=== PATIENT | female | born 1950 | race Caucasian/White ===

== ENCOUNTER → 2018-02-12 10:25 | Outpatient (CLI) | payer MEDICARE, OTHER, SELFPAY ==
--- NOTE | 2018-02-12 10:29 | BI_ITS ---
MAMMOGRAPHY - BILATERAL SCREENING REASON FOR EXAM: Female, 67 years old. Routine annual screening examination. PERTINENT HISTORY: Aunt with breast cancer. TECHNIQUE: Digital bilateral breast tami (3D mammographic acquisition) in the CC and MLO projections. 2-D mediolateral oblique (MLO) and craniocaudad (CC) views of both breasts were obtained. CAD: Full Field Digital Mammography with Computer Added Detection was performed. COMPARISON: Comparison is made with prior study dated February 06, 2017 and December 21, 2015. FINDINGS: Breast Composition: There are scattered areas of fibroglandular density. There are no dominant masses or suspicious calcifications. Stable bilateral secretory calcifications. No other significant abnormalities are identified. There has been no significant change since the prior study. BI/SCREENING MAMM (CAD), BILAT IMPRESSION: Stable bilateral screening mammogram. Yearly follow-up mammogram recommended. (A) ASSESSMENT CATEGORY: BIRADS Category 2: Benign. A letter regarding these results will be sent to the patient by the facility within 30 days. Approximately 10% of breast cancers are not detected by mammography. A normal mammogram should not delay biopsy of a clinically suspicious abnormality. [id number] Electronically Signed: Ranjeet Funes MD at 13:58 EDT Tel [phone], Service support ,
== END ==
PROVIDERS: PCP Internal Medicine; Visit Provider Internal Medicine
DX: Z12.31 Encounter for screening mammogram for malignant neoplasm of breast (principal); Z80.3 Family history of malignant neoplasm of breast
CPT/HCPCS: 77063; 77067

== ENCOUNTER → 2019-02-05 11:30 | Outpatient (CLI) | payer MEDICARE, OTHER, SELFPAY ==
[2019-02-05 15:15] LABS: Absolute Lymphocyte Count 1.81 X10^3/ul (0.83-4.51); Absolute Neutrophil Count 5.2 X10^3/uL (2.0-7.7); Basophil# 0.06 X10^3/uL; Basophil% 0.8 % (0-1); Eosinophil# 0.16 X10^3/uL; Eosinophils% 2.1 % (0-5); Hematocrit 37.5 % (37-47); Hemoglobin 12.2 g/dl (12.0-15.0); Lymphocyte # 1.81 X10^3/ul (4.0); Lymphocyte % 23.2 % (19-41); Mean Corp Hgb Conc 32.5 g/gl (32-36); Mean Corpuscular Hgb 29.3 pg (27.0-32.0); Mean Corpuscular Volume 90.1 fL (81-99); Mean Platelet Vol. 10.1 fl (6.2-12.0); Monocyte% 7.7 % (0-10); Neutrophil # 5.17 X10^3/uL (2.7-7.7); Neutrophil % 66.2 % (47-70); Platelet Count 221 K/mm3 (150-450); RBC Distribution Width CV 13.7 % (11.6-14.6); RBC Distribution Width SD 45.3 fl (35.1-43.9); Red Blood Count 4.16 M/mm3 (4.2-5.4); White Blood Count 7.8 K/mm3 (4.4-11.0)
[2019-02-05 15:16] LABS: POSITIVE COUNT NO; POSITIVE DIFFERENTIAL NO; POSITIVE MORPHOLOGY NO
[2019-02-05 15:44] LABS: AST(SGOT) 25 U/L (15-37); Alanine Aminotransfer ALT/SGPT 43 U/L (13-56); Albumin, Serum 3.8 g/dL (3.2-5.0); Alkaline Phosphatase 66 U/L (45-117); Anion Gap 7 (5-15); BUN 14 mg/dL (7-18); BUN/Creat Ratio 24.6 RATIO (10-20); Calcium,Total 8.9 mg/dL (8.5-10.1); Chloride 104 mmol/L (98-107); Creatinine, Serum 0.57 mg/dL (0.55-1.02); EST Glomerular Filtration Rate 112 mL/min (>60); Est Glom Filt Rate - Afr Amer 136 mL/min (>60); Free T3 2.6 pg/mL (2.18-3.98); Globulin 3.8 g/dL (2.2-4.2); Glucose 85 mg/dL (74-106); Potassium 3.8 mmol/L (3.5-5.1); Protein, Total 7.6 g/dL (6.4-8.2); Sodium Level 140 mmol/L (136-145); T4 Free Direct 1.44 ng/dL (0.76-1.46); Thyroid Stim Hormone (TSH) 1.16 uIU/mL (0.358-3.74)
== END ==
PROVIDERS: Family Provider Family Medicine; PCP Family Medicine; Visit Provider Family Medicine
DX: E03.9 Hypothyroidism, unspecified (principal); R06.02 Shortness of breath; I10 Essential (primary) hypertension
CPT/HCPCS: 36415; 80053; 84439; 84443; 84481; 85025

== ENCOUNTER 2019-02-09 00:18 | Observation (INO) | payer MEDICARE, OTHER, SELFPAY ==
[2019-02-09] VITALS (11 sets, daily range): BP systolic 136–183; BP diastolic 64–93; PULSE 62–83; RESP 13–24; TEMP 36.3–37.1; O2SAT 97–100; BMI 25.3; BMI 24.5
--- NOTE | 2019-02-09 00:21 | ED.RN ---
CALLED FOR EKG WITH A COMPLAINT OF CHEST PAIN, PULLED OLD EKGS FOR
--- NOTE | 2019-02-09 00:30 | RAD_ITS ---
STUDY: X-RAY CHEST REASON FOR EXAM: Female, 68 years old. Chest pain. TECHNIQUE: Single AP portable view of the chest. COMPARISON: None. FINDINGS: The lungs are clear and expanded. There is no demonstrated pleural abnormality. Normal size heart. Normal mediastinum and betty. Normal visualized pulmonary arteries. Normal visualized aortic arch and descending thoracic aorta. There is a dextroscoliosis of the thoracic spine. There is degenerative osteoarthritis of the bilateral shoulders. There is no demonstrated abnormality of the visualized soft tissue structures of the upper abdomen. RAD/Chest 1 View (Portable) IMPRESSION: Degenerative changes, as described above. No demonstrated acute cardiopulmonary process. Electronically Signed: Terry Mosley, at 0:49 EDT Tel , Service support ,
--- NOTE | 2019-02-09 00:30 | EKG12_ITS ---
Test Reason : CP Blood Pressure : / mmHG Vent. Rate : 074 BPM Atrial Rate : 074 BPM P-R Int : 200 ms QRS Dur : 086 ms QT Int : 402 ms P-R-T Axes : 061 -03 095 degrees QTc Int : 446 ms Normal sinus rhythm Possible Anterior infarct , age undetermined Abnormal ECG Confirmed by PAULA ESTRELLA, DRISS ([id number]), newspaper managing editor DANIA AZAR ([id number]) on 02/12/2019 1:19:35 PM Referred By: LISSA Confirmed By:DRISS MITCHELL MD
[2019-02-09] MEDS: Aspirin 81 MG TAB.CHEW 324 MG PO (00:33)
[2019-02-09 00:36] LABS: Absolute Lymphocyte Count 2.36 X10^3/ul (0.83-4.51); Absolute Neutrophil Count 4.2 X10^3/uL (2.0-7.7); Basophil# 0.08 X10^3/uL; Eosinophil# 0.36 X10^3/uL; Eosinophils% 4.6 % (0-5); Hematocrit 37.7 % (37-47); Hemoglobin 12.6 g/dl (12.0-15.0); Lymphocyte # 2.36 X10^3/ul (4.0); Mean Corp Hgb Conc 33.4 g/gl (32-36); Mean Corpuscular Hgb 29.6 pg (27.0-32.0); Mean Corpuscular Volume 88.7 fL (81-99); Mean Platelet Vol. 9.7 fl (6.2-12.0); Monocyte# 0.89 X10^3/uL; Monocyte% 11.3 % (0-10); Neutrophil # 4.17 X10^3/uL (2.7-7.7); Platelet Count 206 K/mm3 (150-450); RBC Distribution Width CV 13.2 % (11.6-14.6); RBC Distribution Width SD 42.5 fl (35.1-43.9); Red Blood Count 4.25 M/mm3 (4.2-5.4); White Blood Count 7.9 K/mm3 (4.4-11.0)
--- NOTE | 2019-02-09 00:36 | ED.DCSUM_ITS ---
- ER Visit Summary Date of Service: 02/09/19 Chief Complaint: Left arm pain, chest pain History of Present Illness: The patient is a 68 F presenting with left arm pain. She states her arm has been aching throughout the day. She does not recall any injury. It is not worsened with different movements or positions. She states she has been having intermittent chest pressure over the past week. This is associated with shortness of breath and lightheadedness. She was seen by her primary care physician on Monday and scheduled for an outpatient stress test. She denies diaphoresis or nausea. She has a history of hypertension and hypothyroidism. Denies PE/DVT risk factors. She is not a smoker. Physical Examination: Vitals are stable. Patient is afebrile. Alert no acute distress. HEENT exam is unremarkable. Neck is supple. Lungs are clear and equal bilaterally. Heart is regular rate and rhythm. Abdomen is soft nontender nondistended. Extremities are unremarkable. Skin is warm and dry. No focal neurologic deficit. Remainder of exam is unremarkable. Emergency Department Course and Treatment: Patient was given aspirin on arrival. EKG is sinus rate of 74, unchanged from previous. Chest x-ray shows no acute process. CBC, chemistries unremarkable other than potassium 3.2. Troponin is negative. On reevaluation, her pain has improved. Discussed with the hospitalist for observation. Disposition: Observation Impression: Chest pain, left arm pain This note was generated with [employer] dictation software. It may contain incorrect words, spelling, and punctuation that were not noted in review of the chart prior to signing ED Disposition - Plan for ED Patient: Referrals: Niki Nieto MD [Primary Care Provider] -
[2019-02-09 00:39] LABS: POSITIVE COUNT NO; POSITIVE DIFFERENTIAL NO; POSITIVE MORPHOLOGY NO
[2019-02-09 00:50] LABS: Anion Gap 2 (5-15); BUN 11 mg/dL (7-18); BUN/Creat Ratio 18.7 RATIO (10-20); Calcium,Total 8.9 mg/dL (8.5-10.1); Chloride 108 mmol/L (98-107); Creatinine, Serum 0.59 mg/dL (0.55-1.02); EST Glomerular Filtration Rate 108 mL/min (>60); Est Glom Filt Rate - Afr Amer 131 mL/min (>60); Estimated Creatinine Clearance 41.99 ml/min; Glucose 88 mg/dL (74-106); Potassium 3.2 mmol/L (3.5-5.1); Sodium Level 140 mmol/L (136-145)
--- NOTE | 2019-02-09 01:54 | HP.PCM_ITS ---
Problem List (1) Osteoporosis Status: Chronic (2) Hypothyroidism Status: Chronic (3) Hypertension Status: Chronic (4) Chronic back pain Status: Chronic (5) Left arm pain Status: Acute (6) Upper respiratory infection Status: Inactive (7) Anemia Status: Inactive History of Present Illness Date of Admission: 02/09/19 Chief Complaint: left arm pain The patient is a 68 year old F with a significant history of hypertension; osteoporosis; chronic back pain; and hypothyroidism who presented with left arm pain and tingling of the same extremity for 1 day. Also in the past 2 weeks patient has had episodic substernal excruciating chest pain that typically comes on in the afternoon and fades away in the evening. For this reason she saw her PCP who prescribed outpatient stress test which is yet to be done. The last time she had a chest pain was a day before the presentation. Patient describes chest pain as heaviness. It is associated with shortness of breath making it difficult for her to talk. She thinks that her chest pain is aggravated with talking and improved by not talking. She reported that because her chest pain she felt lightheaded and was about to pass out. She denies any nausea or vomiting. However she reports the feeling of warmness with chest pain. At emergency part the patient was noted to have low potassium. Patient was given potassium chloride 20mEq as well as aspirin. Reportedly patient had a treadmill stress test a year ago. Past Medical History Past Medical History (Chronic Problems): Chronic Problems (Last Reviewed 02/09/19 @ 02:47 by Malachi Ta MD) Chest pain (Chronic) Osteoporosis (Chronic) Hypothyroidism (Chronic) Hypertension (Chronic) Chronic back pain (Chronic) Medical History: Medical History (Last Reviewed 02/09/19 @ 02:54 by Malachi Ta MD) Chest pain (Chronic) R07.9 Osteoporosis (Chronic) M81.0 Hypothyroidism (Chronic) E03.9 Hypertension (Chronic) I10 Chronic back pain (Chronic) M54.9, G89.29 Anemia (Acute) D64.9 Allergies amoxicillin Allergy (Verified 02/09/19 00:19) Itching Home Medications: Ambulatory Orders Medication Instructions Recorded atenolol 25 mg tablet 12.5 mg PO QDAY tab 02/02/18 levothyroxine 50 mcg capsule 50 mcg PO QDAY 02/02/18 Surgical History: Surgical History (Last Reviewed 02/09/19 @ 02:54 by Malachi Ta MD) History of appendectomy Z90.49 Surgical History: - - Tubal ligation, bladder tuck. Lives: With Family Smoking Status: Never smoker - *Family History Maternal Family History: Family History (Last Reviewed 02/09/19 @ 02:54 by Malachi Ta MD) Father Heart disease Myocardial infarction Mother Dementia History Items: Hypertension - Paternal side, - - She reports that a paternal grandfather had a heart attack when he was a 62 for for which reason he in his sleep. Review of Systems Constitutional: Denies: Chills, Fever, Weight Change HEENT: Denies: Head Aches, Sinus Congestion, Sinus Drainage Cardiovascular: Reports: Chest Pain, Light Headedness. Denies: Palpitations Respiratory: Reports: Shortness of Breath. Denies: Cough, Shortness of breath at rest, Sputum production Gastrointestinal: Denies: Abdominal Pain, Nausea, Vomiting Genitourinary: Denies: Dysuria Musculoskeletal: Denies: Joint Pain, Joint Tenderness Skin: Denies: Rash, Wounds Neurological: Denies: Numbness, Tingling, Focal weakness Psychiatric: Denies: Anxiety, Depression, Homicidal Ideations, Suicidal Ideations Hematologic/ Lymphatic: Denies: Easy Bruising, Easy Bleeding VTE Information - Inpt Only VTE Present on Admission: No VTE Mechan Device Prophylaxis: None VTE Pharm Prophylaxis ordered?: Yes Patient Problems: Active and Suspected Problems (Last Reviewed 02/09/19 @ 02:47 by Malachi Ta MD) Left arm pain (Acute) - Physical Exam General: Alert, Oriented x3, Cooperative HEENT: Atraumatic, PERRLA, EOMI, Normocephalic Neck: Supple, No JVD, Negative Carotid Bruits Lungs: Clear to auscultation, Normal air movement Cardiovascular: Regular rate, No murmurs Abdomen: Bowel Sounds Present, Soft, Non Tender Extremities: No edema, Capillary Refill Less than 3 Seconds Skin: No rashes, No breakdown Musculoskeletal: No Tenderness to Palpation of Joints or Extremities Neurological: Cranial nerves II-XII grossly intact, Motor Exam 5/5 strength throughout, - - Deep tendon reflexes are not hyperactive. No dysmetria. Psych/Mental Status: Normal Affect, Appropriate Vital Signs Temp Pulse Resp BP Pulse Ox 98.8 F 78 24 H 183/83 H 99 02/09/19 00:20 02/09/19 00:20 02/09/19 00:20 02/09/19 00:20 02/09/19 00:20 Oxygen Flow Rate (L/min) 2 Oxygen Delivery Method Nasal Cannula Weight: 62.8 kg Body Mass Index (BMI) 25.3 Laboratory Tests Past 24 Hrs 02/09/19 02/09/19 00:25 00:25 WBC 7.9 RBC 4.25 Hgb 12.6 Hct 37.7 MCV 88.7 MCH 29.6 MCHC 33.4 RDW 13.2 RDW Differential 42.5 Plt Count 206 MPV 9.7 Immature Gran % (Auto) 0.100 Neut % (Auto) 53.0 Lymph % (Auto) 30.0 [place] % (Auto) 11.3 H Eos % (Auto) 4.6 Baso % (Auto) 1.0 Absolute Neuts (auto) 4.2 Absolute Lymphs (auto) 2.36 Total Counted Not Reportable Sodium 140 Potassium 3.2 L Chloride 108 H Carbon Dioxide 30.0 Anion Gap 2 L BUN 11 Creatinine 0.59 Estim Creat Clear Calc 41.99 Est GFR (MDRD) Af Amer 131 Est GFR (MDRD) Non-Af 108 BUN/Creatinine Ratio 18.7 Glucose 88 Calcium 8.9 Troponin I < 0.015 Assessment/Plan All Active Problems (Last Reviewed 02/09/19 @ 02:47 by Malachi Ta MD) Left arm pain (Acute) The patient is a 68 year old F with a significant history of hypertension; osteoporosis; chronic back pain; and hypothyroidism who presented with left arm pain and tingling of the same extremity; and also with chest pain concerning for cardiac source of chest pain. Chest pain Her left-sided arm pain and tingling could be chest pain equivalent. Further she reports episodic chest pain for last 2 weeks. Admit to a monitored bed on PCU CXR independently reviewed confirms no acute cardiopulmonary process. EKG independently reviewed confirms T wave inversion only in lead aVL Old records reviewed showed normal Sinus jasmin with first degree AV block. Received aspirin 325 mg at emergency departments. SL NTG 0.4 mg prn as needed for chest pain Morphine as needed for pain We will check lipid panel. High intensity statin x1 dose ordered. Serial cardiac enzymes Stat EKG as needed for chest pain Treadmill Stress test in the AM if the cardiac enzymes are negative Hypertension On presentation her blood pressure was not within goal. Because patient has a scheduled treadmill test we will hold home beta-fredy PRN hydralazine ordered. Trend blood pressures. Hypokalemia On presentation his potassium was 3.2. Patient received K-Dur 20 mEq in the emergency department. Additional 40 mEq of K-Dur has been ordered. Trend BMP Check magnesium level. Hypothyroidism Synthroid continued. DVT prophylaxis Subcutaneous Lovenox ordered Code Visit OBSV E&M: 11767 Initial observation care L3
--- NOTE | 2019-02-09 02:49 | ED.RN ---
PT CALLED DOWN FOR ME TO GIVE 40MEQ K-DUR. VERIFIED TO GIVE THIS ON TOP OF THE 20 SHE JUST RECENTLY GOT, DR. MEDRANO STATED YES, HE WANTS A TOTAL OF 60 MEQ GIVEN IN ED.
--- NOTE | 2019-02-09 03:00 | EKG12_ITS ---
Test Reason : ADMIT EKG Blood Pressure : / mmHG Vent. Rate : 058 BPM Atrial Rate : 058 BPM P-R Int : 224 ms QRS Dur : 092 ms QT Int : 422 ms P-R-T Axes : 046 -04 060 degrees QTc Int : 414 ms Sinus bradycardia with 1st degree A-V block Otherwise normal ECG When compared with ECG of 09-FEB-2019 00:24, MANUAL COMPARISON REQUIRED, DATA IS UNCONFIRMED Confirmed by PAULA ESTRELLA, DRISS ([id number]), editor book DANIA AZAR ([id number]) on 02/12/2019 2:03:06 PM Referred By: DR BRENNER Confirmed By:DRISS MITCHELL MD
--- NOTE | 2019-02-09 05:55 | NM_ITS ---
CLINICAL: 68-year-old hypertensive female with reported history of chest discomfort. REST-MAXIMAL STRESS 99mTc SESTAMIBI MYOCARDIAL PERFUSION SPECT COMPARISON: Previous stress cardiac perfusion SPECT study raw data dated 07/31/2015 FINDINGS: Following the intravenous administration of 12.0 mCi of 99m Tc sestamibi, the resting myocardial perfusion acquisitions demonstrate uniform radiopharmaceutical concentration throughout all left ventricular segments. After exercising on the treadmill for 6 minutes and 33 seconds, to a maximum heart rate of 150 beats per minute and following the intravenous administration of 35.8 mCi of 99m Tc sestamibi, the post stress myocardial perfusion images reveal likewise normal perfusion throughout all left ventricular myocardial segments. The post stress resting left ventricular ejection fraction is calculated to be > 70 % by gated SPECT technique. Wall motion and end systolic thickening are considered normal. NM/Nuclear Stress Test - Treadmil IMPRESSION: 1. NORMAL REST-MAXIMAL STRESS 99m Tc SESTAMIBI MYOCARDIAL PERFUSION SPECT. A. No evidence of maximal exercise induced left ventricular ischemia. B. Preservation of resting left ventricular systolic function. (Alyssa et al, J Nucl Med 37: 105P, 1995). Electronically Signed: Dave Ely DO at 13:08 EDT Tel , Service support ,
[2019-02-09] MEDS: Levothyroxine 50 MCG Tablet PO (06:05)
[2019-02-09 07:13] LABS: Partial Thromboplast Time 29.7 Seconds (24.1-36.2); Prothrombin Time (Protime)PT. 13.3 SECONDS (11.7-14.9)
[2019-02-09 07:39] LABS: Anion Gap 4 (5-15); BUN 8 mg/dL (7-18); BUN/Creat Ratio 15.5 RATIO (10-20); Calcium,Total 8.9 mg/dL (8.5-10.1); Chloride 111 mmol/L (98-107); Cholesterol 185 mg/dL (200); Creatinine, Serum 0.52 mg/dL (0.55-1.02); EST Glomerular Filtration Rate 125 mL/min (>60); Est Glom Filt Rate - Afr Amer 152 mL/min (>60); Estimated Creatinine Clearance 41.99 ml/min; Glucose 86 mg/dL (74-106); High Density Lipoprotein 64 mg/dL; Potassium 4.2 mmol/L (3.5-5.1); Sodium Level 144 mmol/L (136-145); Triglycerides 52 mg/dL; Very Low Density Lipoprotein 10 mg/dL (5-40)
--- NOTE | 2019-02-09 11:08 | STRESSREP ---
Stress Test Report Resting EKG showed normal sinus rhythm. Nonspecific T wave changes. Patient exercised on the treadmill according to the [employer] protocol for a total of 6 minutes and 33 seconds. Test was stopped as maximal heart rate was achieved. Resting heart rate was 68 bpm. Target heart rate was 129 bpm which was 85% of the predicted maximal heart rate. Maximal heart rate achieved was 150 bpm. Patient complained of 5 out of 10 chest pain during the second stage with at a heart rate of 133 bpm. EKG changes suggestive of ischemia noted in leads I and aVL starting during the second stage of exercise and resolving into recovery. Interpretation: 1. Positive EKG changes suggestive of ischemia. Specificity may be decreased because of resting EKG changes. 2. Chest pain reported during the second stage of exercise. 3. Nuclear report pending.
--- NOTE | 2019-02-09 14:07 | DCINST_ITS ---
- Discharge Diagnoses Current Active Problems: Current Active and Chronic Problems (Last Reviewed 02/09/19 @ 02:54 by Malachi Ta MD) Left arm pain (Acute) You will use the following diet at home:: Cardiac Your food should be the consistency of: Regular Your liquids should be the consistency of: Regular/Thin Discharge Activity: Return to Normal Activity Allergies/Adverse Reactions: Allergies amoxicillin Allergy (Verified 02/09/19 00:19) Itching Medications to take at Discharge atenolol 25 mg tablet 25 mg PO QDAY tab 02/02/18 levothyroxine 50 mcg capsule 50 mcg PO QDAY 02/02/18 Acetaminophen [Tylenol Tablet] 650 mg PO Q6H PRN PRN tablet 02/09/19 Isosorbide Mononitrate [Imdur] 30 mg PO DAILY #30 tab 02/09/19 The following prescriptions were given: Isosorbide Mononitrate [Imdur] 30 mg PO DAILY #30 tab Primary Care Physician: Niki Nieto MD [Primary Care Provider] - Please follow up with your Primary Care Physician in: 1-2 weeks Test Results: Test results from this visit will be discussed in further detail at your follow- up appointment, if applicable. Please Follow Up With: Gee Mancera MD When: Monday Proposed Discharge Date: 02/09/19
--- NOTE | 2019-02-09 14:56 | DS.PCM_ITS ---
<Chris Mccallum - Last Filed: 02/09/19 14:43> Discharge Date and Diagnosis Date of Admission: 02/09/19 Date of Discharge: 02/09/19 - Primary Discharge Diagnosis Chest pain Abnormal stress test Hypokalemia - resolved HTN Hypothyroidism Chronic back pain - Secondary Discharge Diagnosis Chronic Problems (Last Reviewed 02/09/19 @ 02:54 by Malachi Ta MD) Chest pain (Chronic) Osteoporosis (Chronic) Hypothyroidism (Chronic) Hypertension (Chronic) Chronic back pain (Chronic) Hospital Course and Treatment Imaging Results: 02/09/19 05:55 Nuclear Stress Test - Treadmil [NM] AM (NON MEDS) EKG:: EKG changes suggestive of ischemia noted in leads I and aVL starting during the second stage of exercise and resolving into recovery. Interpretation: 1. Positive EKG changes suggestive of ischemia. Specificity may be decreased because of resting EKG changes. 2. Chest pain reported during the second stage of exercise. 3. Nuclear report pending. Nuclear:: NM/Nuclear Stress Test - Treadmil IMPRESSION: 1. NORMAL REST-MAXIMAL STRESS 99m Tc SESTAMIBI MYOCARDIAL PERFUSION SPECT. A. No evidence of maximal exercise induced left ventricular ischemia. B. Preservation of resting left ventricular systolic function. (Alyssa et al, J Nucl Med 37: 105P, 1995). RAD/Chest 1 View (Portable) IMPRESSION: Degenerative changes, as described above. No demonstrated acute cardiopulmonary process. Operations: None Procedures: Stress test Summary of Care Provided: Hospital Course: The patient is a 68 year old F with pmhx htn, chronic back pain, hypothyroidism, osteoporosis, anemia, who presented to the ER with c/o chest pain and heaviness, substernal, excruciating, not present in the AM, worse in the afternoon at rest and with exertion, possibly worse when talking. She had associated lightheadedness and a feeling that she may pass out. She came to the ER and had a negative troponin, negative CXR, negative troponin. Labs were positive for low K. She was admitted to the PCU for chest pain workup on tele. No events on tele. Potassium was replaced. Troponin cycled - negative x 3. She underwent a stress test the following day. The EKG portion of this test demonstrated ischemic changes, the nuclear portion was normal. The patient had no further chest pain at all after admission. I discussed this with Dr. Carr. He advised me that with the nuclear portion being negative, and that she no longer has any symptoms, she could be follow up with as an outpatient. I discussed this with the patient. She felt comfortable going home, and with following up with Dr. Mancera on Monday (she states she saw him about 5 years prior and had a negative workup) or another senior database administrator if he is not available, and is amenable to further testing including a heart catheterization as an outpatient if indicated. She was started on imdur, and will continue atenolol. Blood pressure has been trending high. She will start daily baby aspirin. She was advised to avoid physical exertion, alcohol, coffee, and stress. She was discharged home in stable condition. She will follow up Monday with cardiology, and with the PCP in 1-2 weeks. This patient was seen by Chris Mccallum PA-C under the supervision of Dr. Power. [] - Physical Exam General: Alert, Oriented x3, Cooperative HEENT: Atraumatic, PERRLA, EOMI, Normocephalic Neck: Supple, No JVD, Negative Carotid Bruits Lungs: Clear to auscultation, Normal air movement Cardiovascular: Regular rate, No murmurs Abdomen: Bowel Sounds Present, Soft, Non Tender Extremities: No edema, Capillary Refill Less than 3 Seconds Skin: No rashes, No breakdown Musculoskeletal: No Tenderness to Palpation of Joints or Extremities Neurological: Cranial nerves II-XII grossly intact Psych/Mental Status: Normal Affect, Appropriate, Alert and oriented to time, place, person, mood and affect Vital Signs Temp Pulse Resp BP Pulse Ox 98.1 F 83 14 146/91 H 98 02/09/19 14:20 02/09/19 14:20 02/09/19 14:20 02/09/19 14:20 02/09/19 14:20 Oxygen Flow Rate (L/min) 2 Oxygen Delivery Method Room Air Weight: 133 lb 13.129 oz Body Mass Index (BMI) 24.5 Intake and Output for Last 24 Hours 02/07/19 02/08/19 02/09/19 23:59 23:59 23:59 Intake Total 270 / 270 Balance 270 / 270 Laboratory Tests Past 24 Hrs 02/09/19 02/09/19 02/09/19 00:25 00:25 03:29 WBC 7.9 RBC 4.25 Hgb 12.6 Hct 37.7 MCV 88.7 MCH 29.6 MCHC 33.4 RDW 13.2 RDW Differential 42.5 Plt Count 206 MPV 9.7 Immature Gran % (Auto) 0.100 Neut % (Auto) 53.0 Lymph % (Auto) 30.0 Stark % (Auto) 11.3 H Eos % (Auto) 4.6 Baso % (Auto) 1.0 Absolute Neuts (auto) 4.2 Absolute Lymphs (auto) 2.36 Total Counted Not Reportable PT INR APTT Sodium 140 Potassium 3.2 L Chloride 108 H Carbon Dioxide 30.0 Anion Gap 2 L BUN 11 Creatinine 0.59 Estim Creat Clear Calc 41.99 Est GFR (MDRD) Af Amer 131 Est GFR (MDRD) Non-Af 108 BUN/Creatinine Ratio 18.7 Glucose 88 Calcium 8.9 Magnesium 2.0 Troponin I < 0.015 < 0.015 Triglycerides Cholesterol LDL Cholesterol VLDL Cholesterol HDL Cholesterol 02/09/19 02/09/19 02/09/19 06:35 06:35 06:35 WBC RBC Hgb Hct MCV MCH MCHC RDW RDW Differential Plt Count MPV Immature Gran % (Auto) Neut % (Auto) Lymph % (Auto) Stark % (Auto) Eos % (Auto) Baso % (Auto) Absolute Neuts (auto) Absolute Lymphs (auto) Total Counted PT 13.3 INR 1.0 APTT 29.7 Sodium 144 Potassium 4.2 Chloride 111 H Carbon Dioxide 29.0 Anion Gap 4 L BUN 8 Creatinine 0.52 L Estim Creat Clear Calc 41.99 Est GFR (MDRD) Af Amer 152 Est GFR (MDRD) Non-Af 125 BUN/Creatinine Ratio 15.5 Glucose 86 Calcium 8.9 Magnesium Troponin I < 0.015 Triglycerides 52 Cholesterol 185 LDL Cholesterol 111 VLDL Cholesterol 10 HDL Cholesterol 64 Discharge Diet: Low fat/ Low Cholesterol, - - 2500 mg sodium daily Discharge Activity: Return to Normal Activity Home Medications: Medications to take at Discharge atenolol 25 mg tablet 25 mg PO QDAY tab 02/02/18 levothyroxine 50 mcg capsule 50 mcg PO QDAY 02/02/18 Acetaminophen [Tylenol Tablet] 650 mg PO Q6H PRN PRN tablet 02/09/19 Aspirin [Aspirin, Baby] 81 mg PO DAILY@0800 #30 tab.chew 02/09/19 Isosorbide Mononitrate [Imdur] 30 mg PO DAILY #30 tab 02/09/19 Following Prescrptions Were Given to Patient: Aspirin [Aspirin, Baby] 81 mg PO DAILY@0800 #30 tab.chew Isosorbide Mononitrate [Imdur] 30 mg PO DAILY #30 tab Primary Care Physician: Niki Nieto MD [Primary Care Provider] - Please follow up with your Primary Care Physician in: 1-2 weeks Please Follow Up With: Gee Mancera MD When: Monday Please Follow Up With: sara teague Disposition: Home Minutes spent on discharge:: 35 Patient Condition:: Stable Medical Necessity - Tobacco Use Smoking Status: Never smoker Meaningful Use Info Meaningful Use Diagnoses (Choose all that apply): None applicable <Goodtspartha,[place] - Last Filed: 02/10/19 07:46> Discharge Date and Diagnosis - Secondary Discharge Diagnosis Chronic Problems (Last Reviewed 02/09/19 @ 02:54 by Malachi Ta MD) Chest pain (Chronic) Osteoporosis (Chronic) Hypothyroidism (Chronic) Hypertension (Chronic) Chronic back pain (Chronic) Hospital Course and Treatment Procedures: None Summary of Care Provided: This patient was seen in conjunction with SARAH Fermin. I have independently interviewed and examined the patient and reviewed pertinent historical, laboratory, and other data. Please refer to SARAH Fermin note for his patient's presentation, findings, and recommendations. I have reviewed and his note and concur with his documentation 68-year-old female with past medical history of hypertension, hypothyroidism who comes in with complaints of chest pain associated lightheadedness. Her admitting EKG was unremarkable. Chest x-ray was negative. Troponins were negative. She had hypokalemia that was replaced. Telemetry was unremarkable. Patient underwent stress test that was negative. Patient was discharged and she will follow-up with senior database administrator in the outpatient. Physical Exam: Gen: Looks in some discomfort, not pale, not jaundiced CVS:HS I +II, regular, no murmurs RESP: Diminished at lung bases GI: BS present and normal, soft, nontender, no palpable organs EXT:No edema ASSESSMENT: 1. Chest pain, atypical, ACS ruled out, stress test negative. 2. Hypertension 3. Hypothyroidism 4. Chronic back pain 5. Osteoporosis - Physical Exam Vital Signs Temp Pulse Resp BP Pulse Ox 98.1 F 83 14 146/91 H 98 02/09/19 14:20 02/09/19 14:20 02/09/19 14:20 02/09/19 14:20 02/09/19 14:20 Oxygen Flow Rate (L/min) 2 Oxygen Delivery Method Room Air Weight: 60.7 kg Body Mass Index (BMI) 24.5 Intake and Output for Last 24 Hours 02/08/19 02/09/19 02/10/19 23:59 23:59 23:59 Intake Total 270 / 270 Balance 270 / 270 Medical Necessity - Tobacco Use Smoking Status: Never smoker Tobacco Use: Non-smoker Code Visit Inpatient E&M: 86189 Disch Hosp
== END 2019-02-09 14:06 | disposition home or self-care (01) ==
LOC: ED 00:51 → PCU 02:33
PROVIDERS: Admitting Provider Hospitalist; Emergency Provider Emergency Medicine; Family Provider Family Medicine; PCP Family Medicine; Visit Provider Internal Medicine
DX: R07.89 Other chest pain (principal); R94.39 Abnormal result of other cardiovascular function study; E03.9 Hypothyroidism, unspecified; I10 Essential (primary) hypertension; E87.6 Hypokalemia; R06.02 Shortness of breath; R42 Dizziness and giddiness; M79.602 Pain in left arm
CPT/HCPCS: 36415; 71045; 78452; 80048; 80061; 83735; 84484; 85025; 85610; 85730; 93005; 93017; 99218; 99285; A9500; A4216; G0378

== ENCOUNTER 2019-02-18 10:29 | Day surgery (SDC) | payer MEDICARE, OTHER, SELFPAY ==
[2019-02-13 13:43] VITALS: BMI 25.0
[2019-02-14 13:02] VITALS: BMI 25.0
--- NOTE | 2019-02-18 12:22 | CL.D_ITS ---
Patient Name: GALILEO REY Study Date: 02/18/2019 Performing: Gee Mancera MD Ht: 61.81 inches 157 cm : 1950 Wt: 136.69 lbs 62 kg Age: 68 Gender: female BSA: 1.62 PROCEDURE(S) PERFORMED CR52-PXL/COR/LV CLINICAL PROFILE AND INDICATIONS Indications: Suspected CAD Heart Failure: None Stress/Imaging Date: 02/09/2019Stress Test with SPECT MPI: Negative CAD Presentations: Symptom unlikely to be ischemic. CONCLUSIONS Non obstructive coronary arteries Normal LV size, wall motion,and systolic function RECOMMENDATIONS Medical therapy DESCRIPTION OF PROCEDURE The patient arrived to the procedure lab. The risks and benefits of the procedure as well as a full d escription of our services here and current unavailability of surgical backup were fully explained to the patient and/or their significant other prior to the catheterization. The Timeout was completed, verifying the correct patient and procedure. The patient's procedural site was prepped and draped in the usual fashion. Local anesthetic was given subcutaneously to right radial region with Lidocaine 2% . Using a modified Seldinger technique, arterial access was obtained via the right radial artery, a 6 Fr sheath was inserted. Left Coronary Artery selective angiography was performed in multiple views u sing a 5 Fr. 4.0 Hemet catheter. Right Coronary Artery selective angiography was then performed in mu ltiple views using a 5 Fr. 4.0 Hemet catheter. Left Ventriculography was performed in GRAY projection using a 5 Fr. Pigtail catheter. LV to AO pullback pressures were then recorded.The arterial sheath was pulled and a TR Band was applied for hemostasis. 12cc of air CORONARY ANGIOGRAPHY DOMINANCE: Right Dominant LEFT HEART ASSESSMENT Left Ventricular Ejection Fraction: by LV Gram 65 % Normal LV wall motion Normal Left Ventricular systolic function LEFT MAIN: Angiographically normal LEFT ANTERIOR DESCENDING ARTERY: Mild luminal irregularities less than 30% CIRCUMFLEX ARTERY: Angiographically normal RIGHT CORONARY ARTERY: Angiographically normal COMPLICATIONS No Complications PROCEDURE MEDICATIONS Fentanyl 50 mcg IV Versed 1 mg IV Oxygen: 2 L/min via nasal cannula Heparin diluted in 23cc Heparinized saline. Patient given 10cc IA of this solution. 02/18/2019 12:06: 23 Verapamil 2.5mg, Ntg 100mcgs, 2000 units of Heparin diluted in 23cc Heparinized saline. Patient give n 10cc IA of this solution. 02/18/2019 12:06:23 SUMMARY OF HEMODYNAMIC DATA Time AIR REST ECG 11:13:42 AO 95/52 (71) SA 12:08:11 LV 114/-1, 6 12:14:34 LV 101/-2, 6 12:14:41 LV 108/0, 8 12:15:56 LVp 107/-2, 7 12:15:59 AOp 111/51 (78) 12:16:04 Signed By Gee Mancera MD On 02/18/2019 12:21:39 PM Gee Mancera MD
== END 2019-02-18 14:41 | disposition home or self-care (01) ==
LOC: CLSP 10:30
PROVIDERS: Family Provider Family Medicine; PCP Family Medicine; Referring Provider Internal Medicine Cardiovascular Disease; Visit Provider Internal Medicine Cardiovascular Disease
DX: R07.9 Chest pain, unspecified (principal); I10 Essential (primary) hypertension; E03.9 Hypothyroidism, unspecified; M54.9 Dorsalgia, unspecified; G89.29 Other chronic pain; M81.0 Age-related osteoporosis without current pathological fracture; Z79.02 Long term (current) use of antithrombotics/antiplatelets; Z79.82 Long term (current) use of aspirin; Z79.899 Other long term (current) drug therapy; Z86.2 Personal history of diseases of the blood and blood-forming organs and certain disorders involving the immune mechanism
CPT/HCPCS: 93458; 99152; 99153; J7040; Q9967; C1769; C1894

== ENCOUNTER → 2019-02-25 07:45 | Outpatient (CLI) | payer MEDICARE, OTHER, SELFPAY ==
[2019-02-14 13:02] VITALS: BMI 25.0
--- NOTE | 2019-02-25 07:50 | BI_ITS ---
MAMMOGRAPHY - BILATERAL SCREENING REASON FOR EXAM: Female, 68 years old. Routine annual screening examination. PERTINENT HISTORY: Aunt with breast cancer. TECHNIQUE: Digital bilateral breast tami (3D mammographic acquisition) in the CC and MLO projections. 2-D mediolateral oblique (MLO) and craniocaudad (CC) views of both breasts were obtained. CAD: Full Field Digital Mammography with Computer Added Detection was performed. COMPARISON: Comparison is made with prior study dated February 12, 2018 and February 06, 2017. FINDINGS: Breast Composition: There are scattered areas of fibroglandular density. There are no dominant masses or suspicious calcifications. Stable appearance of the bilateral secretory calcifications. Stable small bilateral axillary lymph nodes. No other significant abnormalities are identified. There has been no significant change since the prior study. BI/SCREENING MAMM (CAD), BILAT IMPRESSION: Stable bilateral screening mammogram. Yearly follow-up mammogram recommended. (A) ASSESSMENT CATEGORY: BIRADS Category 2: Benign. A letter regarding these results will be sent to the patient by the facility within 30 days. Approximately 10% of breast cancers are not detected by mammography. A normal mammogram should not delay biopsy of a clinically suspicious abnormality. [id number] Electronically Signed: Ranjeet Fnues, at 10:00 EDT , Service support ,
== END ==
PROVIDERS: PCP Internal Medicine; Referring Provider Family Medicine; Visit Provider Family Medicine
DX: Z12.31 Encounter for screening mammogram for malignant neoplasm of breast (principal)
CPT/HCPCS: 77063; 77067

== ENCOUNTER → 2020-02-27 07:05 | Outpatient (CLI) | payer MEDICARE, OTHER, SELFPAY ==
[2019-02-14 13:02] VITALS: BMI 25.0
--- NOTE | 2020-02-27 07:08 | BI_ITS ---
MAMMOGRAPHY - BILATERAL SCREENING REASON FOR EXAM: Female, 69 years old. Routine annual screening examination. PERTINENT HISTORY: Aunt with breast cancer. TECHNIQUE: Digital bilateral breast olesya (3D mammographic acquisition) in the CC and MLO projections. 2-D mediolateral oblique (MLO) and craniocaudad (CC) views of both breasts were obtained. CAD: Full Field Digital Mammography with Computer Added Detection was performed. COMPARISON: Comparison is made with prior study dated February 25, 2019 and February 12, 2018. FINDINGS: Breast Composition: There are scattered areas of fibroglandular density. There are no dominant masses or suspicious calcifications. Stable benign-appearing bilateral axillary lymph nodes. Stable appearance of the bilateral secretory calcifications. No other significant abnormalities are identified. There has been no significant change since the prior study. BI/SCREEN MAMM (CAD) W/OLESYA BILAT IMPRESSION: Stable bilateral screening mammogram. Yearly follow-up mammogram recommended. (A) ASSESSMENT CATEGORY: BIRADS Category 2: Benign. A letter regarding these results will be sent to the patient by the facility within 30 days. Approximately 10% of breast cancers are not detected by mammography. A normal mammogram should not delay biopsy of a clinically suspicious abnormality. [id number] Electronically Signed: Ranjeet Funes, at 10:08 EDT , Service support ,
== END ==
PROVIDERS: PCP Internal Medicine; Referring Provider Family Medicine; Visit Provider Family Medicine
DX: Z12.31 Encounter for screening mammogram for malignant neoplasm of breast (principal)
CPT/HCPCS: 77063; 77067

== ENCOUNTER → 2020-10-05 16:00 | Outpatient (CLI) | payer MEDICARE, OTHER, SELFPAY ==
[2019-02-14 13:02] VITALS: BMI 25.0
[2020-10-05 17:15] LABS: Absolute Lymphocyte Count 1.71 X10^3/uL (0.83-4.51); Absolute Neutrophil Count 4.9 X10^3/uL (2.0-7.7); Basophil# 0.08 X10^3/uL; Eosinophil# 0.25 X10^3/uL; Eosinophils% 3.2 % (0-5); Hematocrit 39.2 % (37-47); Hemoglobin 12.4 g/dL (12.0-15.0); Lymphocyte # 1.71 X10^3/ul (4.0); Lymphocyte % 22.2 % (19-41); Mean Corp Hgb Conc 31.6 g/dL (32-36); Mean Corpuscular Volume 91.8 fL (81-99); Mean Platelet Vol. 10.1 fl (6.2-12.0); Monocyte% 10.4 % (0-10); NRBC Flagged by Analyzer 0 % (0-5); Neutrophil # 4.86 X10^3/uL (2.7-7.7); Neutrophil % 62.9 % (47-70); Platelet Count 227 K/mm3 (150-450); RBC Distribution Width CV 12.8 % (11.6-14.6); RBC Distribution Width SD 43.7 fl (35.1-43.9); Red Blood Count 4.27 M/mm3 (4.2-5.4); White Blood Count 7.7 K/mm3 (4.4-11.0)
[2020-10-05 17:33] LABS: AST(SGOT) 30 U/L (15-37); Alanine Aminotransfer ALT/SGPT 55 U/L (13-56); Albumin, Serum 3.7 g/dL (3.2-5.0); Alkaline Phosphatase 82 U/L (45-117); Anion Gap 6 (5-15); BUN 14 mg/dL (7-18); BUN/Creat Ratio 22.3 RATIO (10-20); Calcium,Total 8.9 mg/dL (8.5-10.1); Chloride 106 mmol/L (98-107); Creatinine, Serum 0.63 mg/dL (0.55-1.02); EST Glomerular Filtration Rate 99 mL/min (>60); Est Glom Filt Rate - Afr Amer 120 mL/min (>60); Free T3 2.4 pg/mL (2.18-3.98); Globulin 3.7 g/dL (2.2-4.2); Glucose 100 mg/dL (74-106); Potassium 3.5 mmol/L (3.5-5.1); Protein, Total 7.4 g/dL (6.4-8.2); Sodium Level 141 mmol/L (136-145); T4 Free Direct 1.34 ng/dL (0.76-1.46); Thyroid Stim Hormone (TSH) 1.46 uIU/mL (0.358-3.74)
== END ==
PROVIDERS: PCP Family Medicine; Visit Provider Family Medicine
DX: I10 Essential (primary) hypertension (principal); E03.9 Hypothyroidism, unspecified; Z51.81 Encounter for therapeutic drug level monitoring
CPT/HCPCS: 36415; 80053; 84439; 84443; 84481; 85025

== ENCOUNTER → 2020-12-16 14:34 | Outpatient (CLI) | payer MEDICARE, OTHER, SELFPAY ==
[2019-02-14 13:02] VITALS: BMI 25.0
[2020-12-16 15:33] LABS: Absolute Lymphocyte Count 1.73 X10^3/uL (0.83-4.51); Absolute Neutrophil Count 4.5 X10^3/uL (2.0-7.7); Basophil# 0.09 X10^3/uL; Basophil% 1.2 % (0-1); Eosinophil# 0.31 X10^3/uL; Eosinophils% 4.2 % (0-5); Hemoglobin 11.8 g/dL (12.0-15.0); Lymphocyte # 1.73 X10^3/ul (4.0); Lymphocyte % 23.6 % (19-41); Mean Corp Hgb Conc 31.9 g/dL (32-36); Mean Corpuscular Hgb 28.9 pg (27.0-32.0); Mean Corpuscular Volume 90.5 fL (81-99); Monocyte% 9.5 % (0-10); NRBC Flagged by Analyzer 0 % (0-5); Neutrophil # 4.48 X10^3/uL (2.7-7.7); Neutrophil % 61.2 % (47-70); Platelet Count 227 K/mm3 (150-450); RBC Distribution Width CV 13.1 % (11.6-14.6); RBC Distribution Width SD 43.7 fl (35.1-43.9); Red Blood Count 4.09 M/mm3 (4.2-5.4); White Blood Count 7.3 K/mm3 (4.4-11.0)
[2020-12-16 16:44] LABS: Free T3 2.8 pg/mL (2.18-3.98); Iron 63 ug/dL (50-170); Thyroid Stim Hormone (TSH) 1.52 uIU/mL (0.358-3.74)
== END ==
PROVIDERS: PCP Family Medicine; Visit Provider Family Medicine
DX: E03.9 Hypothyroidism, unspecified (principal); D50.9 Iron deficiency anemia, unspecified
CPT/HCPCS: 36415; 83540; 84439; 84443; 84481; 85025

== ENCOUNTER → 2021-03-22 10:43 | Outpatient (CLI) | payer MEDICARE, OTHER, SELFPAY ==
[2019-02-14 13:02] VITALS: BMI 25.0
--- NOTE | 2021-03-22 10:46 | BI_ITS ---
MAMMOGRAPHY - BILATERAL SCREENING REASON FOR EXAM: Female, 70 years old. Routine annual screening examination. PERTINENT HISTORY: Aunt with breast cancer. TECHNIQUE: Digital bilateral breast olesya (3D mammographic acquisition) in the CC and MLO projections. 2-D mediolateral oblique (MLO) and craniocaudad (CC) views of both breasts were obtained. CAD: Full Field Digital Mammography with Computer Added Detection was performed. COMPARISON: Comparison is made with prior study dated 02/27/2020 and 02/25/2019. FINDINGS: Breast Composition: There are scattered areas of fibroglandular density. There are no dominant masses or suspicious calcifications. Stable small benign-appearing bilateral axillary lymph nodes. No other significant abnormalities are identified. There has been no significant change since the prior study. BI/SCRN MAMM (CAD)W/OLESYA BILAT IMPRESSION: Stable bilateral screening mammogram. Yearly follow-up mammogram recommended. (A) ASSESSMENT CATEGORY: BIRADS Category 2: Benign. A letter regarding these results will be sent to the patient by the facility within 30 days. Approximately 10% of breast cancers are not detected by mammography. A normal mammogram should not delay biopsy of a clinically suspicious abnormality. [id number] Electronically Signed: Ranjeet Funes MD at 12:17 EDT , Service support ,
== END ==
PROVIDERS: PCP Family Medicine; Referring Provider Family Medicine; Visit Provider Family Medicine
DX: Z12.31 Encounter for screening mammogram for malignant neoplasm of breast (principal)
CPT/HCPCS: 77063; 77067

== ENCOUNTER → 2022-03-21 | Outpatient (CLI) | payer MEDICARE, OTHER, SELFPAY ==
--- NOTE | 2022-03-21 08:12 | BI_ITS ---
MAMMOGRAPHY - BILATERAL SCREENING REASON FOR EXAM: Female, 71 years old. Routine annual screening examination. PERTINENT HISTORY: Aunt with breast cancer. TECHNIQUE: Digital bilateral breast olesya (3D mammographic acquisition) in the CC and MLO projections. 2-D mediolateral oblique (MLO) and craniocaudad (CC) views of both breasts were obtained. CAD: Full Field Digital Mammography with Computer Added Detection was performed. COMPARISON: Comparison is made with prior study dated 03/22/2021 and 02/27/2020. FINDINGS: Breast Composition: There are scattered areas of fibroglandular density. There are no dominant masses or suspicious calcifications. Stable small benign-appearing bilateral axillary lymph nodes. No other significant abnormalities are identified. There has been no significant change since the prior study. BI/SCRN MAMM (CAD)W/OLESYA BILAT IMPRESSION: Stable bilateral screening mammogram. Yearly follow-up mammogram recommended. (A) ASSESSMENT CATEGORY: BIRADS Category 2: Benign. A letter regarding these results will be sent to the patient by the facility within 30 days. Approximately 10% of breast cancers are not detected by mammography. A normal mammogram should not delay biopsy of a clinically suspicious abnormality. [id number] Electronically Signed: Ranjeet Funes MD at 9:15 EDT ,
== END | disposition home or self-care (01) ==
LOC: OPBI 08:08
PROVIDERS: PCP Family Medicine; Visit Provider Family Medicine
DX: Z12.31 Encounter for screening mammogram for malignant neoplasm of breast (principal)
CPT/HCPCS: 77063; 77067

== ENCOUNTER → 2022-06-09 | Outpatient (CLI) | payer MEDICARE, OTHER, SELFPAY ==
[2022-06-09 10:19] LABS: Absolute Lymphocyte Count 1.16 X10^3/uL (0.83-4.51); Absolute Neutrophil Count 4.4 X10^3/uL (2.0-7.7); Basophil# 0.08 X10^3/uL; Basophil% 1.2 % (0-1); Eosinophil# 0.19 X10^3/uL; Eosinophils% 2.9 % (0-5); Hematocrit 38.5 % (37-47); Hemoglobin 12.6 g/dL (12.0-15.0); Lymphocyte # 1.16 X10^3/ul (0.83-4.51); Mean Corp Hgb Conc 32.7 g/dL (32-36); Mean Corpuscular Hgb 29.9 pg (27.0-32.0); Mean Corpuscular Volume 91.4 fL (81-99); Mean Platelet Vol. 10.3 fl (6.2-12.0); Monocyte# 0.61 X10^3/uL; Monocyte% 9.5 % (0-10); NRBC Flagged by Analyzer 0 % (0-5); Neutrophil # 4.39 X10^3/uL (2.7-7.7); Neutrophil % 68.1 % (47-70); Platelet Count 231 K/mm3 (150-450); RBC Distribution Width CV 12.6 % (11.6-14.6); RBC Distribution Width SD 42.3 fl (35.1-43.9); Red Blood Count 4.21 M/mm3 (4.2-5.4); White Blood Count 6.5 K/mm3 (4.4-11.0)
[2022-06-09 11:06] LABS: AST(SGOT) 20 U/L (15-37); Alanine Aminotransfer ALT/SGPT 29 U/L (13-56); Albumin, Serum 3.7 g/dL (3.2-5.0); Alkaline Phosphatase 61 U/L (45-117); Anion Gap 7 (5-15); BUN 12 mg/dL (7-18); BUN/Creat Ratio 19.4 RATIO (10-20); Calcium,Total 9.2 mg/dL (8.5-10.1); Chloride 106 mmol/L (98-107); Cholesterol 184 mg/dL (200); Creatinine, Serum 0.62 mg/dL (0.55-1.02); EST Glomerular Filtration Rate 101 mL/min (>60); Est Glom Filt Rate - Afr Amer 122 mL/min (>60); Free T3 2.6 pg/mL (2.18-3.98); Globulin 3.6 g/dL (2.2-4.2); Glucose 81 mg/dL (74-106); High Density Lipoprotein 59 mg/dL; Potassium 3.7 mmol/L (3.5-5.1); Protein, Total 7.3 g/dL (6.4-8.2); Sodium Level 142 mmol/L (136-145); T4 Free Direct 1.23 ng/dL (0.76-1.46); Thyroid Stim Hormone (TSH) 1.95 uIU/mL (0.358-3.74); Triglycerides 70 mg/dL; Very Low Density Lipoprotein 14 mg/dL (5-40)
== END | disposition home or self-care (01) ==
LOC: MTLAB 07:24
PROVIDERS: PCP Family Medicine; Referring Provider Family Medicine; Visit Provider Family Medicine
DX: E03.9 Hypothyroidism, unspecified (principal); E78.5 Hyperlipidemia, unspecified; Z51.81 Encounter for therapeutic drug level monitoring
CPT/HCPCS: 36415; 80053; 80061; 84439; 84443; 84481; 85025

== ENCOUNTER → 2023-03-21 | Outpatient (CLI) | payer MEDICARE, SELFPAY ==
--- NOTE | 2023-03-21 12:43 | RAD_ITS ---
EXAM: XR CERVICAL SPINE, 4 OR 5 VIEWS CLINICAL INDICATION: tingling of left hand and arm TECHNIQUE: Frontal, lateral and bilateral oblique views of the cervical spine. COMPARISON: No relevant prior studies available. FINDINGS: VERTEBRAE: The osseous structures are demineralized. No acute fracture is identified. The odontoid is intact. Extensive cervical facet arthritis is present. There is 5 mm anterior subluxation of C4 on C5. There is slight posterior subluxation of C5 on C6 and of C6 on C7. OTHER BONES/JOINTS: No facet dislocation. DISC SPACES: C4/5 disc space shows moderate degenerative narrowing. C5/6 and C6/7 disc spaces show severe degenerative narrowing with mild endplate sclerosis and marginal osteophytes. Uncinate and facet hypertrophy cause bilateral neural foraminal encroachment the mid to lower cervical spine, more severe on the right at C5/6, more severe on the left at the C5/6 and C4/5 levels. SOFT TISSUES: Unremarkable. No prevertebral soft tissue widening. VASCULATURE: Atherosclerotic vascular calcification noted within the left side of the neck. LUNG APICES: Visualized lung apices are clear. Visualized upper ribs are intact. OTHER: The visualized maxillary antra are clear. RAD/Cerv Spine 4 or 5 Views IMPRESSION: Extensive cervical degenerative changes with degenerative narrowing of the mid to lower cervical disc spaces, extensive facet arthritis, and mild anterior subluxation of C4 on C5. No acute fracture. Electronically Signed: Vish Hernández MD at 7:17 EDT ,
--- NOTE | 2023-03-21 12:45 | RAD_ITS ---
EXAM: XR LEFT SHOULDER COMPLETE, 2 OR MORE VIEWS CLINICAL INDICATION: PAIN TECHNIQUE: Two or more views of the left shoulder. COMPARISON: No relevant prior studies available. FINDINGS: BONES/JOINTS: Osseous structures are demineralized. Mild degenerative spurring noted about the AC joint, which is not abnormally widened. No acute fracture. No subluxation. Normal alignment. No sclerotic or destructive changes observed. SOFT TISSUES: A small amorphous soft tissue calcification is projected just lateral to the humeral head indicating minimal calcific tendinitis/bursitis. No soft tissue swelling or gas. No radiopaque foreign body. OTHER: Visualized left upper ribs are intact. The visualized left lung is clear. Atherosclerotic vascular calcification is present within the left side of the neck. RAD/Shoulder min 2 Views IMPRESSION: 1. Minimal calcific tendinitis/bursitis of the left shoulder. 2. No acute fracture or dislocation. Electronically Signed: Vish Hernández MD at 22:48 EDT ,
== END | disposition home or self-care (01) ==
LOC: MTRAD 12:41
PROVIDERS: PCP Family Medicine; Referring Provider Nurse Practitioner Family; Visit Provider Nurse Practitioner Family
DX: M25.512 Pain in left shoulder (principal); G56.92 Unspecified mononeuropathy of left upper limb
CPT/HCPCS: 72050; 73030

== ENCOUNTER → 2023-03-22 | Outpatient (CLI) | payer MEDICARE, SELFPAY ==
--- NOTE | 2023-03-22 08:35 | BI_ITS ---
MAMMOGRAPHY - BILATERAL SCREENING REASON FOR EXAM: Female, 72 years old. Routine annual screening examination. PERTINENT HISTORY: Aunt with breast cancer. TECHNIQUE: Digital bilateral breast olesya (3D mammographic acquisition) in the CC and MLO projections. 2-D mediolateral oblique (MLO) and craniocaudad (CC) views of both breasts were obtained. CAD: Full Field Digital Mammography with Computer Added Detection was performed. COMPARISON: Comparison is made with prior study dated March 21, 2022 and March 22, 2021. FINDINGS: Breast Composition: There are scattered areas of fibroglandular density. There are no dominant masses or suspicious calcifications. Stable small benign-appearing bilateral axillary lymph nodes. No other significant abnormalities are identified. There has been no significant change since the prior study. BI/SCRN MAMM (CAD)W/OLESYA BILAT IMPRESSION: Stable bilateral screening mammogram. Yearly follow-up mammogram recommended. (A) ASSESSMENT CATEGORY: BIRADS Category 2: Benign. A letter regarding these results will be sent to the patient by the facility within 30 days. Approximately 10% of breast cancers are not detected by mammography. A normal mammogram should not delay biopsy of a clinically suspicious abnormality. [id number] Electronically Signed: Ranjeet Funes MD at 9:52 EDT ,
== END | disposition home or self-care (01) ==
LOC: OPBI 08:33
PROVIDERS: PCP Family Medicine; Referring Provider Family Medicine; Visit Provider Family Medicine
DX: Z12.31 Encounter for screening mammogram for malignant neoplasm of breast (principal); Z80.3 Family history of malignant neoplasm of breast
CPT/HCPCS: 77063; 77067

== ENCOUNTER → 2023-05-24 | Outpatient (CLI) | payer MEDICARE, SELFPAY ==
--- NOTE | 2023-05-24 09:29 | NEURO ---
NCS and/or EMG Patient Report Ordering Doctor: Linda Silverman DATE OF SERVICE: 05/24/23 Chiquita presents with complaints of left hand numbness and arm pain. Electrodiagnostic Findings: Left median motor nerve demonstrates prolonged distal latency with reduced amplitude and reduced conduction velocity. Left ulnar motor response demonstrates normal distal latency and amplitude with a greater than 35% drop in amplitude across the elbow. Borderline prolonged left median F-wave is noted. Prolonged left median sensory latency at the wrist. Normal ulnar and radial sensory responses. Needle EMG testing was performed in the left upper limb. All muscles tested showed no evidence of denervation with normal motor unit action potentials. Electrodiagnostic impression: This is an abnormal study in the left upper limb 1. Electrodiagnostic findings demonstrate left-sided median mononeuropathy. This is consistent with a moderate left carpal tunnel syndrome. 2. Electrodiagnostic findings consistent with a left-sided ulnar neuropathy. This is consistent with a moderate left cubital tunnel syndrome. 3. No electrodiagnostic evidence for cervical radiculopathy. Multi Select Codes Neurology Neurology Interp Codes: 63517-88 Musc test done w/n test comp (interp) and 60453-59 Nrv cndj test 7-8 studies (interp)
== END | disposition home or self-care (01) ==
LOC: PSN 08:03
PROVIDERS: PCP Family Medicine; Referring Provider Family Medicine; Visit Provider Family Medicine
DX: M54.12 Radiculopathy, cervical region (principal); M79.602 Pain in left arm; R20.0 Anesthesia of skin
CPT/HCPCS: 95886; 95910

== ENCOUNTER → 2023-08-07 | Outpatient (CLI) | payer MEDICARE, SELFPAY ==
[2023-08-07 12:08] LABS: Absolute Lymphocyte Count 1.28 X10^3/uL (0.83-4.51); Absolute Neutrophil Count 5.2 X10^3/uL (2.0-7.7); Basophil# 0.08 X10^3/uL; Basophil% 1.1 % (0-1); Eosinophil# 0.16 X10^3/uL; Eosinophils% 2.2 % (0-5); Hematocrit 40.2 % (37-47); Hemoglobin 12.8 g/dL (12.0-15.0); Lymphocyte # 1.28 X10^3/ul (0.83-4.51); Lymphocyte % 17.4 % (19-41); Mean Corp Hgb Conc 31.8 g/dL (32-36); Mean Corpuscular Hgb 29.6 pg (27.0-32.0); Mean Corpuscular Volume 93.1 fL (81-99); Mean Platelet Vol. 10.2 fl (6.2-12.0); Monocyte# 0.63 X10^3/uL; Monocyte% 8.6 % (0-10); NRBC Flagged by Analyzer 0 % (0-5); Neutrophil # 5.18 X10^3/uL (2.7-7.7); Neutrophil % 70.4 % (47-70); Platelet Count 244 K/mm3 (150-450); RBC Distribution Width CV 12.5 % (11.6-14.6); RBC Distribution Width SD 43.2 fl (35.1-43.9); Red Blood Count 4.32 M/mm3 (4.2-5.4); White Blood Count 7.4 K/mm3 (4.4-11.0)
[2023-08-07 12:39] LABS: AST(SGOT) 20 U/L (15-37); Alanine Aminotransfer ALT/SGPT 36 U/L (13-56); Albumin, Serum 3.9 g/dL (3.2-5.0); Alkaline Phosphatase 71 U/L (45-117); Anion Gap 6 (5-15); BUN 18 mg/dL (7-18); BUN/Creat Ratio 25.2 RATIO (10-20); Chloride 107 mmol/L (98-107); Cholesterol 200 mg/dL (200); Creatinine, Serum 0.71 mg/dL (0.55-1.02); EST Glomerular Filtration Rate 85 mL/min (>60); Est Glom Filt Rate - Afr Amer 103 mL/min (>60); Free T3 2.8 pg/mL (2.18-3.98); Globulin 3.9 g/dL (2.2-4.2); Glucose 99 mg/dL (74-106); High Density Lipoprotein 63 mg/dL; Potassium 3.9 mmol/L (3.5-5.1); Protein, Total 7.8 g/dL (6.4-8.2); Sodium Level 140 mmol/L (136-145); T4 Free Direct 1.32 ng/dL (0.76-1.46); Thyroid Stim Hormone (TSH) 1.67 uIU/mL (0.358-3.74); Triglycerides 107 mg/dL; Very Low Density Lipoprotein 21 mg/dL (5-40)
== END | disposition home or self-care (01) ==
LOC: BFHLAB 09:24
PROVIDERS: PCP Family Medicine; Referring Provider Family Medicine; Visit Provider Family Medicine
DX: E03.9 Hypothyroidism, unspecified (principal); E78.5 Hyperlipidemia, unspecified; Z51.81 Encounter for therapeutic drug level monitoring
CPT/HCPCS: 36415; 80053; 80061; 84439; 84443; 84481; 85025

== ENCOUNTER → 2024-03-25 | Outpatient (CLI) | payer MEDICARE, SELFPAY ==
--- NOTE | 2024-03-25 10:14 | BI_ITS ---
MAMMOGRAPHY - BILATERAL SCREENING REASON FOR EXAM: Female, 73 years old. Routine annual screening examination. PERTINENT HISTORY: Aunt with breast cancer. TECHNIQUE: Digital bilateral breast olesya (3D mammographic acquisition) in the CC and MLO projections. 2-D mediolateral oblique (MLO) and craniocaudad (CC) views of both breasts were obtained. CAD: Full Field Digital Mammography with Computer Added Detection was performed. COMPARISON: Comparison is made with prior study dated March 22, 2023 and March 21, 2022. FINDINGS: Breast Composition: There are scattered areas of fibroglandular density. There are no dominant masses or suspicious calcifications. Stable bilateral benign-appearing axillary lymph nodes. No other significant abnormalities are identified. There has been no significant change since the prior study. BI/SCRN MAMM (CAD)W/OLESYA BILAT IMPRESSION: Stable bilateral screening mammogram. Yearly follow-up mammogram recommended. (A) ASSESSMENT CATEGORY: BIRADS Category 2: Benign. A letter regarding these results will be sent to the patient by the facility within 30 days. Approximately 10% of breast cancers are not detected by mammography. A normal mammogram should not delay biopsy of a clinically suspicious abnormality. [id number] Electronically Signed: Ranjeet Funes MD at 12:28 EDT ,
== END | disposition home or self-care (01) ==
LOC: OPBI 10:13
PROVIDERS: PCP Family Medicine; Referring Provider Family Medicine; Visit Provider Family Medicine
DX: Z12.31 Encounter for screening mammogram for malignant neoplasm of breast (principal); Z80.3 Family history of malignant neoplasm of breast
CPT/HCPCS: 77063; 77067

== ENCOUNTER → 2024-04-01 | Outpatient (CLI) | payer MEDICARE, SELFPAY ==
[2024-04-01 18:06] LABS: Absolute Lymphocyte Count 1.55 X10^3/uL (0.83-4.51); Absolute Neutrophil Count 4.7 X10^3/uL (2.0-7.7); Basophil% 1.4 % (0-1); Eosinophils% 2.7 % (0-5); Hematocrit 35.6 % (37-47); Hemoglobin 11.6 g/dL (12.0-15.0); Lymphocyte # 1.55 X10^3/ul (0.83-4.51); Lymphocyte % 21.2 % (19-41); Mean Corp Hgb Conc 32.6 g/dL (32-36); Mean Corpuscular Hgb 29.8 pg (27.0-32.0); Mean Corpuscular Volume 91.5 fL (81-99); Mean Platelet Vol. 10.1 fl (6.2-12.0); Monocyte# 0.69 X10^3/uL; Monocyte% 9.5 % (0-10); NRBC Flagged by Analyzer 0 % (0-5); Neutrophil # 4.72 X10^3/uL (2.7-7.7); Neutrophil % 64.7 % (47-70); Platelet Count 216 K/mm3 (150-450); RBC Distribution Width CV 13.2 % (11.6-14.6); RBC Distribution Width SD 43.8 fl (35.1-43.9); Red Blood Count 3.89 M/mm3 (4.2-5.4); White Blood Count 7.3 K/mm3 (4.4-11.0)
[2024-04-01 18:32] LABS: Vitamin B12 768 pg/mL (211-911)
[2024-04-01 18:53] LABS: ALB/GLOB Ratio 1.1 RATIO (0.9-2.4); AST(SGOT) 30 U/L (15-37); Alanine Aminotransfer ALT/SGPT 34 U/L (13-56); Albumin, Serum 3.7 g/dL (3.2-5.0); Alkaline Phosphatase 67 U/L (45-117); Anion Gap 8 (5-15); BUN 14 mg/dL (7-18); BUN/Creat Ratio 21.7 RATIO (10-20); Calcium,Total 8.9 mg/dL (8.5-10.1); Chloride 106 mmol/L (98-107); Creatinine, Serum 0.64 mg/dL (0.55-1.02); EST Glomerular Filtration Rate 95 mL/min (>60); Est Glom Filt Rate - Afr Amer 115 mL/min (>60); Globulin 3.3 g/dL (2.2-4.2); Glucose 103 mg/dL (74-106); Potassium 3.6 mmol/L (3.5-5.1); Sodium Level 139 mmol/L (136-145); Thyroid Stim Hormone (TSH) 1.44 uIU/mL (0.358-3.74)
== END | disposition home or self-care (01) ==
PROVIDERS: PCP Family Medicine; Referring Provider Family Medicine; Visit Provider Family Medicine
DX: E03.9 Hypothyroidism, unspecified (principal); R42 Dizziness and giddiness; E53.8 Deficiency of other specified B group vitamins; Z51.81 Encounter for therapeutic drug level monitoring
CPT/HCPCS: 36415; 80053; 82607; 84443; 85025

== ENCOUNTER → 2025-08-20 | Outpatient (CLI) | payer MEDICARE, SELFPAY ==
[2025-08-20 08:29] LABS: Hematocrit 39.5 % (37-47); Hemoglobin 13.1 g/dL (12.0-15.0); Immature Granulocytes Count 0.020 X10^3/uL (0.0-0.0); Mean Corp Hgb Conc 33.2 g/dL (32-36); Mean Corpuscular Volume 91.4 fL (81-99); Mean Platelet Vol. 9.4 fl (6.2-12.0); NRBC Flagged by Analyzer 0 % (0-5); Platelet Count 207 K/mm3 (150-450); RBC Distribution Width CV 13.0 % (11.6-14.6); RBC Distribution Width SD 43.2 fl (35.1-43.9); Red Blood Count 4.32 M/mm3 (4.2-5.4); White Blood Count 7.0 K/mm3 (4.4-11.0)
[2025-08-20 09:14] LABS: AST(SGOT) 24 U/L (<=31); Alanine Aminotransfer ALT/SGPT 20 U/L (<=34); Albumin, Serum 4.3 g/dL (3.4-4.8); Alkaline Phosphatase 67 U/L (35-104); Anion Gap 10 (5-15); BUN 13 mg/dL (4-19); BUN/Creat Ratio 17.5 RATIO (10-20); Calcium,Total 9.4 mg/dL (7.6-11.0); Carbon Dioxide 26.9 mmol/L (21.0-32.0); Chloride 106 mmol/L (98-108); Cholesterol 186 mg/dL (<=200); Free T3 3.0 pg/mL (2.18-3.98); Globulin 2.9 g/dL (2.2-4.2); Glucose 101 mg/dL (70-99); Low Density Lipoprotein Calc. 106 mg/dL; Potassium 3.9 mmol/L (3.3-5.1); Triglycerides 56 mg/dL; Very Low Density Lipoprotein 11 mg/dL (5-40); Vitamin B12 981 pg/mL (180-914); Vitamin D,25 Hydroxy 59.6 ng/mL (30-100); cholesterol:hdl ratio screen 2.70
== END | disposition home or self-care (01) ==
PROVIDERS: PCP Family Medicine; Referring Provider Family Medicine; Visit Provider Family Medicine
DX: Z51.81 Encounter for therapeutic drug level monitoring (principal); E03.9 Hypothyroidism, unspecified; R42 Dizziness and giddiness; E53.8 Deficiency of other specified B group vitamins; E78.5 Hyperlipidemia, unspecified; E55.9 Vitamin D deficiency, unspecified
CPT/HCPCS: 36415; 80053; 80061; 82306; 82607; 84439; 84443; 84481; 85025

== ENCOUNTER → 2025-10-06 | Outpatient (CLI) | payer MEDICARE, SELFPAY ==
[2025-10-06 18:53] LABS: D-Dimer Quantitative (DVT/PE) 0.91 FEU/ug/m (0.27-0.49)
[2025-10-06 19:16] LABS: Pro- Brain NATRIURETIC PEPTIDE 350 pg/mL (<=1800)
[2025-10-06 19:17] LABS: Anion Gap 12 (7-18); BUN 13 mg/dL (4-19); BUN/Creat Ratio 17.8 RATIO (10-20); Calcium,Total 9.4 mg/dL (7.6-11.0); Carbon Dioxide 25.2 mmol/L (20.0-29.0); Chloride 103 mmol/L (96-106); Glucose 105 mg/dL (70-99); Potassium 3.5 mmol/L (3.5-5.1)
[2025-10-08 07:08] LABS: CRP, High Sensitivity 1.22 mg/L (0.00-3.00)
== END | disposition home or self-care (01) ==
LOC: BFHLAB 15:52
PROVIDERS: PCP Family Medicine; Visit Provider Nurse Practitioner Family
DX: R01.1 Cardiac murmur, unspecified (principal); R07.9 Chest pain, unspecified; R06.02 Shortness of breath
CPT/HCPCS: 36415; 80048; 83880; 85379; 86141

== ENCOUNTER → 2025-10-07 | Outpatient (CLI) | payer MEDICARE, SELFPAY ==
--- NOTE | 2025-10-07 10:37 | RAD_ITS ---
PROCEDURE: CHEST PA AND LATERAL 10/07/2025 REASON FOR EXAM: R/O PNEUMONIA ASSESS HEART SIZE TECHNIQUE: Procedure Code: RADCXR Modality: DX Procedure: CHEST PA AND LATERAL COMPARISON: 02/09/2019 chest radiograph. FINDINGS: Cardiac silhouette near the upper limit of normal size. Normal pulmonary vasculature. No effusion. Lung warner appear clear without evidence of infiltrate, effusion, vascular congestion, mass, or nodule. S-shaped thoracolumbar scoliosis again identified. Dorsal spondylosis again identified, with multilevel disc space narrowings. RAD/Chest PA and Lateral IMPRESSION: Cardiac silhouette near the upper limit of normal size. Chronic changes and clear appearing lung warner. Reading Location: [facility]
== END | disposition home or self-care (01) ==
LOC: RAD 10:37
PROVIDERS: PCP Family Medicine; Referring Provider Nurse Practitioner Family; Visit Provider Nurse Practitioner Family
DX: R06.02 Shortness of breath (principal); R07.9 Chest pain, unspecified
CPT/HCPCS: 71046